=== PATIENT | female | born 2005 | race Caucasian/White ===

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

== ENCOUNTER 2023-05-07 07:16 | Emergency (ER) | payer MEDICAID, OTHER ==
[~2023-05-07] VITALS: Ht 162.6 cm; Wt 68.2 kg
[2023-05-07] MEDS ORDERED: SENN-31 PO (07:23)
[2023-05-07] MEDS ORDERED: NITR-80 PO (07:23)
[2023-05-07 07:30] VITALS: TEMP 98.5
[2023-05-07] MEDS ORDERED: IOHEXOL 350 MG/ML 100 ML VIAL ONE (08:45)
[2023-05-07] MEDS ORDERED: SODIUM CHLORIDE 0.9% 1,000 ML IV ONE (08:45)
[2023-05-07] MEDS ORDERED: SODIUM CHLORIDE 0.9% 100 ML ONE (08:45)
[2023-05-07 08:59] LABS: BASOPHILS % (AUTO) 0.6 % (0.0-2.0); EOSINOPHILS % (AUTO) 0.3 % (1.0-6.0); HEMATOCRIT 35.6 % (36-46); HEMOGLOBIN 11.7 g/dL (12.0-16.0); LYMPHOCYTES # (AUTO) 2.2 K/uL (1.0-4.8); LYMPHOCYTES % (AUTO) 24.7 % (22.0-44.0); MEAN CORPUSCULAR HEMOGLOBIN 27.9 pg (26.0-34.0); MEAN CORPUSCULAR HGB CONC 32.8 G/dL (31.0-37.0); MEAN CORPUSCULAR VOLUME 85 fL (80-100); MONOCYTES # (AUTO) 0.8 K/uL (0.1-1.0); MONOCYTES % (AUTO) 9.3 % (2.0-9.0); NEUTROPHILS # (AUTO) 5.9 K/uL (1.8-7.7); NEUTROPHILS % (AUTO) 65.1 % (40.0-70.0); PLATELET COUNT (AUTO) 192 K/uL (150-450); RED CELL DISTRIBUTION WIDTH 14.9 % (11.5-14.5)
[2023-05-07 09:06] LABS: ANION GAP 6 mmol/L (8-16); CALCIUM, TOTAL 8.9 mg/dL (8.8-10.5); CARBON DIOXIDE 27 mmol/L (22-29); CHLORIDE 102 mmol/L (98-107); CREATININE 0.71 mg/dL (0.60-1.30); GLOMERULAR FILTR. RATE CALC > 60 mL/min (>60); GLUCOSE,RANDOM 94 mg/dL (70-110); POTASSIUM 4.2 mmol/L (3.5-5.1); SODIUM SERUM 135 mmol/L (136-145)
[2023-05-07 09:13] LABS: ALANINE AMINOTRANSFERASE 24 U/L (12-78); ALBUMIN 3.4 g/dL (3.4-5.0); ALKALINE PHOSPHATASE 91 U/L (46-116); ASPARTATE AMINOTRANSFERASE 15 U/L (15-37); BILIRUBIN,TOTAL 0.5 mg/dL (0.1-1.0); TOTAL PROTEIN, SERUM 7.5 g/dL (6.4-8.2)
[2023-05-07] MEDS ORDERED: CefTRIAXone 1 GM/DEXTROSE 50 ML IV ONE (11:45)
[2023-05-07] MEDS ORDERED: AZITHROMYCIN 500 MG TABLET PO ONE (12:15)
[2023-05-07 12:45] VITALS: BP 128/73; PULSE 78; RESP 18
== END 2023-05-07 13:23 | disposition home or self-care (01) ==
LOC: EMS 07:16
DX: R55 Syncope and collapse (principal)
CPT/HCPCS: 99285; 96365; 71275; 96361; 80053; 85025; 85379; 36415; 81025; 93005; J0696; Q9967; J7030; J7050

== ENCOUNTER 2025-08-23 23:09 | Emergency (ER) | payer MEDICAID, OTHER ==
[~2025-08-23] VITALS: Ht 162.6 cm; Wt 71.8 kg
[~2025-08-23 23:09] MED LIST changes: +NITR-108 PO; -NOCURR; +SENN-338 PO; -[UNRECOGNIZED DRUG - CODE]
[2025-08-23 23:18] VITALS: BP 115/66; PULSE 58; RESP 18; TEMP 97.9; O2SAT 96
[2025-08-23 23:37] LABS: COVID AG,FIA SOURCE NASAL SWAB
[2025-08-23 23:40] LABS: SARS-COV2 (COVID) ANTIGEN,FIA Negative (Negative)
[2025-08-23 23:44] LABS: INFLUENZA TYPE A NEGATIVE FOR TYPE A (NEGATIVE); INFLUENZA TYPE B NEGATIVE FOR TYPE B (NEGATIVE)
[2025-08-24 00:01] LABS: RAPID GROUP A STREP PRELIM. NEGATIVE (NEGATIVE)
[2025-08-24] MEDS ORDERED: IPRA30SP2 NASAL (03:44)
[2025-08-24] MEDS ORDERED: AMOX250C4 PO (03:44)
== END 2025-08-24 03:58 | disposition home or self-care (01) ==
LOC: EMS 23:11
DX: J06.9 Acute upper respiratory infection, unspecified (principal); H66.93 Otitis media, unspecified, bilateral; B97.89 Other viral agents as the cause of diseases classified elsewhere; R05.9 Cough, unspecified; J02.9 Acute pharyngitis, unspecified; R09.81 Nasal congestion; Z79.899 Other long term (current) drug therapy; Z20.822 Contact with and (suspected) exposure to COVID-19
CPT/HCPCS: 87081; 87430; 87804; 99283